=== PATIENT | male | born 1985 | race African-American/Black ===

== ENCOUNTER 2016-11-12 22:45 | Observation (INO) | payer OTHER ==
[~2016-11-12] VITALS: Ht 193 cm; Wt 199.7 kg
[2016-11-12 23:29] LABS: HEMATOCRIT 42.6 % (38.0-50.0); MCH 30.2 PG (29.0-34.0); MCHC 32.6 G/DL (30.0-36.0); MCV 92.4 FL (86-99); MEAN PLAT.VOLUME 10.5 uM^3 (9.0-12.4); PLATELET COUNT 272 K/uL (156-360); RBC DIS.WIDTH-CV 12.7 % (11.8-14.6); RED BLOOD COUNT 4.61 M/uL (4.00-5.50); WHITE BLOOD COUNT 8.2 K/uL (4.1-10.2)
[2016-11-12 23:41] LABS: CHLORIDE 107 mEq/L (99-109); POTASSIUM 4.1 mEq/L (3.7-5.4); SODIUM 140 mEq/L (136-147)
[2016-11-12 23:42] LABS: GLUCOSE 123 mg/dL (70-99)
[2016-11-12 23:44] LABS: ANION GAP 11 MEQ/L (2-14)
[2016-11-12 23:47] LABS: UREA NITROGEN (BUN) 13 mg/dL (9-23)
[2016-11-12 23:51] LABS: GFR ESTIMATE (CALCULATED) > 59 mL/min/; TROP-I INTERPRETATION NEGATIVE; TROPONIN-I < 0.01 ng/mL (0.0-0.30)
[2016-11-13] MEDS ORDERED: CAPOZIDE PO (01:19)
[2016-11-13] MEDS ORDERED: LISINOPRIL-HCT1 EAC3 PO (01:19)
[2016-11-13 07:48] LABS: TROP-I INTERPRETATION NEGATIVE; TROPONIN-I < 0.01 ng/mL (0.0-0.30)
[2016-11-13 07:59] VITALS: BP 173/96
[2016-11-13 11:00] LABS: D-DIMER ELISA 0.18 mg/L FEU (< 0.57)
[2016-11-13 11:50] VITALS: BP 137/87
[2016-11-13 13:30] LABS: TROP-I INTERPRETATION NEGATIVE; TROPONIN-I < 0.01 ng/mL (0.0-0.30)
[2016-11-13 17:07] VITALS: BP 138/79
[2016-11-13] MEDS ORDERED: PANTOPRAZOLE SO40 MG PO (18:55)
== END 2016-11-13 20:00 | disposition home or self-care (01) ==
LOC: EME → EDBD 22:45 → EME 22:45 → EDOF 11-13 05:51 → 5WEST 11-13 07:45
PROVIDERS: Emergency Medicine; Family Medicine; Internal Medicine
DX: R07.89 Other chest pain (principal); I10 Essential (primary) hypertension; E66.9 Obesity, unspecified; Z68.43 Body mass index [BMI] 50.0-59.9, adult; K21.9 Gastro-esophageal reflux disease without esophagitis
CPT/HCPCS: 71010; 80048; 84484; 85027; 85379; 93005; 99281; 99285; G0378; J1650

== ENCOUNTER 2017-10-20 16:01 | Observation (INO) | payer OTHER ==
[~2017-10-20] VITALS: Ht 190.5 cm; Wt 196.2 kg
[~2017-10-20 16:01] MED LIST: CAPOZIDE PO; LISINOPRIL-HCT1 EAC3 PO; PANTOPRAZOLE SO40 MG PO
[2017-10-20 16:47] LABS: HEMOGLOBIN 14.9 G/DL (12.5-16.6); MCH 30.7 PG (29.0-34.0); MCHC 33.1 G/DL (30.0-36.0); MCV 92.6 FL (86-99); PLATELET COUNT 285 K/uL (156-360); RBC DIS.WIDTH-CV 12.6 % (11.8-14.6); RBC DIS.WIDTH-SD 43.1 % (39-53); RED BLOOD COUNT 4.86 M/uL (4.00-5.50)
[2017-10-20 16:48] LABS: APPEARANCE CLEAR ((CLEAR)); BILIRUBIN NEGATIVE; BLOOD NEGATIVE; COLOR YELLOW ((YELLOW)); GLUCOSE (STRIP) NEGATIVE; KETONES NEGATIVE; LEUKOCYTES NEGATIVE; NITRITE NEGATIVE; PROTEIN (STRIP) 30; SPECIFIC GRAVITY 1.026 (1.000-1.030); UCUL ADDED? NO; UROBILINOGEN 0.2 MG/DL (0.2-1.0)
[2017-10-20 16:58] LABS: ALBUMIN 4.1 g/dL (3.2-4.8); CHLORIDE 106 mEq/L (99-109); POTASSIUM 4.3 mEq/L (3.7-5.4); SODIUM 140 mEq/L (136-147)
[2017-10-20 17:01] LABS: GLUCOSE 91 mg/dL (70-99); TOTAL PROTEIN 7.3 g/dL (6.4-8.3)
[2017-10-20 17:02] LABS: TOTAL BILIRUBIN 0.5 mg/dL (0.0-1.0)
[2017-10-20 17:04] LABS: ALKALINE PHOSPHATASE 125 IU/L (3-129); CREATININE 1.1 mg/dL (0.6-1.3); GFR ESTIMATE (CALCULATED) > 59 mL/min/ (58.99-99999)
[2017-10-20 17:05] LABS: UREA NITROGEN (BUN) 11 mg/dL (9-23)
[2017-10-20 17:06] LABS: AST (GOT) 26 IU/L (2-34)
[2017-10-20 17:07] LABS: ALT (GPT) 25 IU/L (3-49)
[2017-10-20 17:08] LABS: TROP-I INTERPRETATION NEGATIVE; TROPONIN-I < 0.01 ng/mL (0.0-0.30)
[2017-10-20 18:28] LABS: LIPASE 24 U/L (1.0-51.0)
[2017-10-20 20:36] LABS: TROP-I INTERPRETATION NEGATIVE; TROPONIN-I < 0.01 ng/mL (0.0-0.30)
[2017-10-20 20:37] VITALS: BP 173/90
[2017-10-21 00:06] VITALS: BP 167/81
[2017-10-21 04:13] VITALS: BP 117/55
[2017-10-21 05:50] LABS: TROP-I INTERPRETATION NEGATIVE; TROPONIN-I < 0.01 ng/mL (0.0-0.30)
[2017-10-21 05:56] LABS: HDL CHOLESTEROL 30 MG/DL (Desirable>=40); LDL CHOLESTEROL 79 mg/dL (Desirable<100); NON-HDL CHOLESTEROL 102 mg/dL (Desirable<160); TOTAL CHOLESTEROL 132 mg/dL (Desirable<200); TRIGLYCERIDES 116 MG/DL (Normal: <150)
[2017-10-21 08:30] VITALS: BP 130/76
[2017-10-21 12:22] VITALS: BP 118/55
[2017-10-21] MEDS ORDERED: ASPIRIN81 M2 PO (15:13)
[2017-10-21] MEDS ORDERED: CAPT25T PO (15:13)
[2017-10-21] MEDS ORDERED: PANTOPRAZOLE SO40 MG PO (15:13)
[2017-10-21] MEDS ORDERED: LOPRESSOR25 MG PO (15:13)
== END 2017-10-21 16:59 | disposition home or self-care (01) ==
LOC: EME 16:01 → ENRESERV 19:09 → EDOF 19:09 → 5WEST 19:09 → EDOF 19:09 → ENRESERV 19:39 → 5WEST 20:32
PROVIDERS: Nurse Practitioner Family; Physician Assistant Medical
DX: I16.0 Hypertensive urgency (principal); R07.89 Other chest pain; I10 Essential (primary) hypertension; G47.33 Obstructive sleep apnea (adult) (pediatric); E66.01 Morbid (severe) obesity due to excess calories; Z68.43 Body mass index [BMI] 50.0-59.9, adult; K21.9 Gastro-esophageal reflux disease without esophagitis; Z91.14 Patient's other noncompliance with medication regimen; Z91.19 Patient's noncompliance with other medical treatment and regimen; R51 Headache; Z82.49 Family history of ischemic heart disease and other diseases of the circulatory system; Z83.3 Family history of diabetes mellitus; Z87.891 Personal history of nicotine dependence
CPT/HCPCS: 71046; 80053; 80061; 81003; 83690; 84484; 85027; 87641; 93005; 94660; 99281; 99285; G0378; J1650; J1885; J2405

== ENCOUNTER 2017-10-23 21:41 | Emergency (ER) | payer OTHER ==
[~2017-10-23] VITALS: Ht 190.5 cm; Wt 195.7 kg
[~2017-10-23 21:41] MED LIST changes: +ASPIRIN81 M2 PO; +CAPT25T PO; +LOPRESSOR25 MG PO
[2017-10-23 22:10] LABS: HEMATOCRIT 44.8 % (38.0-50.0); HEMOGLOBIN 15.1 G/DL (12.5-16.6); MCH 30.8 PG (29.0-34.0); MCHC 33.7 G/DL (30.0-36.0); MCV 91.4 FL (86-99); PLATELET COUNT 270 K/uL (156-360); RBC DIS.WIDTH-CV 12.4 % (11.8-14.6); RBC DIS.WIDTH-SD 41.1 % (39-53); WHITE BLOOD COUNT 7.7 K/uL (4.1-10.2)
[2017-10-23 22:20] LABS: ALBUMIN 4.1 g/dL (3.2-4.8); CHLORIDE 109 mEq/L (99-109); POTASSIUM 4.2 mEq/L (3.7-5.4); SODIUM 142 mEq/L (136-147)
[2017-10-23 22:22] LABS: GLUCOSE 106 mg/dL (70-99); TOTAL PROTEIN 7.2 g/dL (6.4-8.3)
[2017-10-23 22:24] LABS: TOTAL BILIRUBIN 0.5 mg/dL (0.0-1.0)
[2017-10-23 22:26] LABS: ALKALINE PHOSPHATASE 125 IU/L (3-129); GFR ESTIMATE (CALCULATED) > 59 mL/min/ (58.99-99999)
[2017-10-23 22:27] LABS: AST (GOT) 25 IU/L (2-34); UREA NITROGEN (BUN) 11 mg/dL (9-23)
[2017-10-23 22:29] LABS: ALT (GPT) 26 IU/L (3-49)
[2017-10-23 22:43] LABS: APPEARANCE CLEAR ((CLEAR)); BILIRUBIN NEGATIVE; BLOOD NEGATIVE; COLOR YELLOW ((YELLOW)); GLUCOSE (STRIP) NEGATIVE; KETONES NEGATIVE; LEUKOCYTES NEGATIVE; NITRITE NEGATIVE; PROTEIN (STRIP) NEGATIVE; SPECIFIC GRAVITY 1.017 (1.000-1.030); UCUL ADDED? NO; UROBILINOGEN 0.2 MG/DL (0.2-1.0)
[2017-10-24] MEDS ORDERED: OMEPRAZOLE40 M1 PO (00:27)
[2017-10-24 00:34] VITALS: BP 152/94
[2017-10-24 04:06] LABS: LIPASE 27 U/L (1.0-51.0)
== END 2017-10-24 00:35 | disposition home or self-care (01) ==
LOC: EME 21:41
DX: R10.13 Epigastric pain (principal); I10 Essential (primary) hypertension; K21.9 Gastro-esophageal reflux disease without esophagitis; Z87.891 Personal history of nicotine dependence
CPT/HCPCS: 74176; 80053; 81003; 83690; 85027; 99281; 99285